=== PATIENT | female | born 1945 | race Hispanic/Latino ===

== ENCOUNTER 2024-09-14 00:14 | Emergency (ER) | payer MEDICARE ==
[~2024-09-14] VITALS: Ht 152.4 cm; Wt 59.0 kg
[2024-09-14 00:41] VITALS: PULSE 84; RESP 17; TEMP 98.3
[2024-09-14] MEDS ORDERED: ULTRAM 50MG50 MG PO (02:35)
[2024-09-14] MEDS ORDERED: ONDANSETRON ODT4 MG SL (02:35)
[2024-09-14] MEDS: ONDANSETRON HCL 4 MG ORAL DISINTEGRATING TAB PO ONE (02:58)
[2024-09-14] MEDS: TRAMADOL HCL 50 MG TAB PO ONE (02:59)
[2024-09-14 03:01] VITALS: BP 124/76; PULSE 65; RESP 17; TEMP 98.1; O2SAT 97
== END 2024-09-14 03:35 | disposition home or self-care (01) ==
LOC: ER 01:20
DX: M25.552 Pain in left hip (principal); S32.19XA Other fracture of sacrum, initial encounter for closed fracture; W01.0XXA Fall on same level from slipping, tripping and stumbling without subsequent striking against object, initial encounter; Y93.01 Activity, walking, marching and hiking; Y92.89 Other specified places as the place of occurrence of the external cause; I10 Essential (primary) hypertension; E78.5 Hyperlipidemia, unspecified; E78.00 Pure hypercholesterolemia, unspecified
CPT/HCPCS: 73700; 99283; Q0162